=== PATIENT | female | born 1955 | race Caucasian/White ===

== ENCOUNTER 2018-12-14 22:04 | Emergency (ER) | payer SELFPAY ==
[~2018-12-14] VITALS: Ht 154.9 cm; Wt 77.8 kg
--- NOTE | 2018-12-14 22:10 | NUR ---
PT CAME TO EMERGENCY DEPT. WITH DAUGHTER COMPLAINING OF HIGH BP FOR OVER A YEAR. PT STATES THAT SHE WAKES UP IN THE MIDDLE OF THE NIGHT WITH SOB, AND HIGH BP. PT AXO4. RESPIRATIONS EVEN AND UNLABORED. PT PUT ON THE MONITOR AND PULSE OX. PENDING EVAL FROM ER .
--- NOTE | 2018-12-14 22:47 | NUR ---
KULDEEP MONSON AT BEDSIDE.
--- NOTE | 2018-12-14 23:06 | NUR ---
FIELD REPRESENTATIVE/HEALTH EDUCATION AT BEDSIDE.
--- NOTE | 2018-12-14 23:06 | NUR ---
EKG AT BEDSIDE.
[2018-12-14 23:17] LABS: BASOPHILS % (AUTO) 0.4 % (0.0-2.0); EOSINOPHILS % (AUTO) 1.1 % (0.0-6.0); HEMATOCRIT 42 % (33-45); HEMOGLOBIN 14.4 g/dL (11.5-14.8); LYMPHOCYTES # (AUTO) 3.4 /CMM (0.8-4.8); LYMPHOCYTES % (AUTO) 38.2 % (20.0-44.0); MEAN CORPUSCULAR HGB CONC 34 g/dl (31.0-36.0); MEAN CORPUSCULAR VOLUME 88 fL (82-100); MONOCYTES # (AUTO) 0.8 /CMM (0.1-1.30); MONOCYTES % (AUTO) 8.5 % (2.0-12.0); NEUTROPHILS # (AUTO) 4.6 /CMM (1.8-8.9); NEUTROPHILS % (AUTO) 51.8 % (43.0-81.0); PLATELET COUNT (AUTO) 213 /CMM (150-450); RED BLOOD CELL COUNT(AUTO) 4.84 MIL/uL (4.0-5.2); WHITE BLOOD COUNT (AUTO) 8.9 K/uL (4.3-11.0)
[2018-12-14 23:38] LABS: CREATININE 0.9 mg/dL (0.6-1.3); UREA NITROGEN, BLOOD 18 mg/dL (7-18)
[2018-12-14 23:42] LABS: ALANINE AMINOTRANSFERASE 20 U/L (12-78); ALBUMIN 3.7 g/dL (3.4-5.0); ALKALINE PHOSPHATASE 108 U/L (46-116); ASPARTATE AMINOTRANSFERASE 12 U/L (15-37); B-TYPE NATRIURETIC PEPTIDE 46 PG/ML (0-125); BILIRUBIN,DIRECT 0.1 mg/dL (0.0-0.2); BILIRUBIN,TOTAL 0.3 mg/dL (0.2-1.0); TOTAL PROTEIN, SERUM 7.3 g/dL (6.4-8.2)
[2018-12-14 23:46] LABS: CARBON DIOXIDE 27 mmol/L (21-32); CHLORIDE 107 mmol/L (98-107); GLUCOSE 141 mg/dL (74-106); POTASSIUM 3.8 mmol/L (3.5-5.1); SODIUM SERUM 143 mmol/L (136-145)
--- NOTE | 2018-12-15 00:12 | NUR ---
Patient is resting comfortably in bed and being monitored. VSS
--- NOTE | 2018-12-15 01:35 | NUR ---
ANNALEE CALLED FOR AN XRAY READ.
--- NOTE | 2018-12-15 02:09 | NUR ---
Patient discharged to home in stable condition. Written and verbal after care instructions given. Patient verbalizes understanding of instruction. Pt ambulatory with steady gait.
[2018-12-15 02:10] VITALS: BP 126/84
== END 2018-12-15 02:10 | disposition home or self-care (01) ==
LOC: ER 22:08
DX: I10 Essential (primary) hypertension (principal); R53.1 Weakness; Z90.710 Acquired absence of both cervix and uterus
CPT/HCPCS: 36415; 71045; 80048; 80076; 83880; 84484; 85025; 85730; 93005; 99284; A4606